=== PATIENT | female | born 1995 | race Two or more races ===

== ENCOUNTER 2021-08-08 15:29 | Emergency (ER) | payer MEDICAID ==
[~2021-08-08] VITALS: Ht 162.6 cm; Wt 77.3 kg
[2021-08-08 15:40] VITALS: BP 108/74
[2021-08-08] MEDS: PERTUSS(ACELL),DIPH,TET VAC/PF 0.5 ML SYRINGE IM. ONE (16:08)
[2021-08-08] MEDS: ACETAMINOPHEN 500 MG TABLET PO ONE (16:09)
== END 2021-08-08 16:22 | disposition home or self-care (01) ==
LOC: EMS 15:32
DX: S61.411A Laceration without foreign body of right hand, initial encounter (principal); X58.XXXA Exposure to other specified factors, initial encounter; Y93.89 Activity, other specified; Y92.89 Other specified places as the place of occurrence of the external cause; Y99.8 Other external cause status
CPT/HCPCS: 12001; 90471; 90715; 99283